=== PATIENT | female | born 1960 | race American Indian/Alaskan Native ===

== ENCOUNTER 2017-01-19 09:26 | Outpatient (CLI) | payer MEDICARE, OTHER ==
--- NOTE | 2017-01-19 12:32 | Fluoroscopy Report ---
GI series: Patient with gastric lap band complaining of occasional discomfort in the left midabdomen over the past few years usually when in bed. The initial image of the abdomen prior to contrast demonstrates single calculus overlying the area of each kidney as well as the lap band and injecting port. The lap band appears to be in normal position. The connecting tube appears intact. Following oral ingestion of contrast the thoracic esophagus appears unremarkable. There is no obvious hernia and no reflux identified. The esophagogastric junction is moderately patent although the contrast column does taper as it passes through the lap band. No abnormality of the lap band itself is identified. Examination of the stomach is otherwise unremarkable and there is a normal passage of barium into the proximal small bowel. The patient identifies the area of discomfort near the injecting port. Impression: 1. Normal at band location. Unremarkably narrowed contrast column through the lap band. 2. Normal stomach and small bowel.
== END 2017-01-19 09:27 | disposition home or self-care (01) ==
LOC: FLUORO 09:26
PROVIDERS: ATTEND Specialist
DX: N20.0 Calculus of kidney (principal); R10.816 Epigastric abdominal tenderness; R13.14 Dysphagia, pharyngoesophageal phase
CPT/HCPCS: 74247

== ENCOUNTER 2017-03-04 06:02 | Day surgery (SDC) | payer MEDICARE ==
[2017-03-04] MEDS ORDERED: WATER FOR IRRIG STERILE IR ONE (07:31)
--- NOTE | 2017-03-04 07:35 | Anesthesia Day of Surgery ---
Anesthesia Day of Surgery - Day of Surgery Patient Examined: Yes Patient H&P Reviewed: Yes Patient is NPO: Yes
--- NOTE | 2017-03-04 07:35 | Anesthesia Consultation ---
Anesthesia Consult and Med Hx Date of service: 03/04/17 - Airway Anesthetic Teeth Evaluation: Good ROM Head & Neck: Adequate Mental/Hyoid Distance: Adequate Mallampati Class: Class II Intubation Access Assessment: Probably Good - Pulmonary Exam CTA: Yes - Cardiac Exam Cardiac Exam: RRR - Pre-Operative Health Status ASA Pre-Surgery Classification: ASA3 Proposed Anesthetic Plan: MAC - Pulmonary Hx Smoking: No Hx Asthma: Yes (last used inhaler this morning) - Endocrine Hx Non-Insulin Dependent Diabetes: No - Hematic Hx Anemia: Yes - Other Systems Hx Obesity: Yes
--- NOTE | 2017-03-04 07:53 | Discharge Summary ---
Providers - Providers Date of discharge: 03/04/17 Attending physician: ANDRY CAMERON Primary care physician: ILYA MEDINA Hospitalization Condition: Good Procedures: egd Disposition: DC-01 TO HOME OR SELFCARE Core Measure Documentation - Palliative Care Palliative Care/ Comfort Measures: Not Applicable - Core Measures Any of the following diagnoses?: none Exam - Physical Exam Narrative exam: unchanged from pre-op - Constitutional Vitals: Temp Pulse Resp BP Pulse Ox 97.5 F L 84 14 133/70 97 03/04/17 07:48 03/04/17 07:48 03/04/17 07:48 03/04/17 07:48 03/04/17 07:48 Plan Activity: no restrictions Weight Bearing Status: Full Weight Bearing Diet: regular Follow up with: ILYA MEDINA MD [Primary Care Provider] - 7 Days
[2017-03-04] MEDS ORDERED: DIPRIVAN 10 MG/ML IV ONE (07:54)
[2017-03-04] MEDS ORDERED: NACL 0.9% 1000 ML 1,000 ML IV SCH (08:00)
--- NOTE | 2017-03-04 08:21 | Post Anesthesia Evaluation ---
- Post Anesthesia Evaluation Patient Participated: Yes Airway Patent: Yes Stable Respiratory Function: Yes Temp > 96.8F: Yes Pain Manageable: Yes Adequeate Hydration: Yes Anesthesia Complications: No
[2017-03-04 08:53] VITALS: BP 132/82
--- NOTE | 2017-03-04 10:01 | Operative Report ---
Operative Report Operative Report: OPERATIVE REPORT - EGD DATE 03/04/17 SURGERY: Upper endoscopy. SURGEON: Lamont Garcia M.D. PRE OP DX: abdominal pain POST OP DX: normal anatomy of banded stomach TYPE OF ANESTHESIA: MAC. ESTIMATED BLOOD LOSS: None. COMPLICATIONS: None. SPECIMENS REMOVED: None. FINDINGS: 1. no signs of erosion or band INDICATIONS:INDICATION FOR PROCEDURE: Patient is a 56-year-old female with of gastric banding. She has been having abdominal pain and reflux. She is here to evaluate her stomach to see if she is a candidate for conversion to another bariatric procedure. PROCEDURE DETAILS: After consent was reviewed, patient was taken back to the operating room where patient was placed in the left lateral decubitus position and a bite block was placed in the mouth. After a time-out was called, MAC anesthesia was initiated. I then passed the endoscope into her oropharynx, into her esophagus, visualized the entire esophagus, which was all within normal limits. I then visualized the stomach which had an expected proximal narrowing due to external compression of the gastric band. The lumen was traversed without difficulty. The remainder of the stomach was normal. The first portion of the duodenum was normal and there were no abnormalities I could clearly visualize. I then retroflexed the scope in the stomach and visualized the underside of the band. There were no signs of erosion or other pathology. I then desufflated the stomach and removed the endoscope. Patient tolerated procedure well and was transferred to recovery room in good and stable condition.
== END 2017-03-04 06:03 | disposition home or self-care (01) ==
LOC: GIO 06:02
PROVIDERS: ATTEND Surgery
DX: K21.9 Gastro-esophageal reflux disease without esophagitis (principal); G47.30 Sleep apnea, unspecified; J45.909 Unspecified asthma, uncomplicated; F32.9 Major depressive disorder, single episode, unspecified; D64.9 Anemia, unspecified; E66.09 Other obesity due to excess calories; Z68.38 Body mass index [BMI] 38.0-38.9, adult; Z90.49 Acquired absence of other specified parts of digestive tract; Z98.890 Other specified postprocedural states; Z79.899 Other long term (current) drug therapy; Z98.84 Bariatric surgery status
CPT/HCPCS: 43235; J2704; J7030